=== PATIENT | female | born 1975 | race African-American/Black ===

== ENCOUNTER 2020-12-06 11:02 | Emergency (ER) | payer BC, MEDICAID, OTHER ==
[~2020-12-06] VITALS: Ht 175.3 cm; Wt 99.8 kg
[2020-12-06 11:02] VITALS: BP 122/80
== END 2020-12-06 13:32 | disposition home or self-care (01) ==
LOC: ER 11:02
DX: R07.89 Other chest pain (principal)
CPT/HCPCS: 72040; 73030; 81025

== ENCOUNTER 2022-01-27 11:52 | Emergency (ER) | payer MEDICAID ==
[~2022-01-27] VITALS: Ht 175.3 cm; Wt 100.2 kg
[2022-01-27] MEDS ORDERED: ONDANSETRON ODT 4 MG TAB PO ONE (12:45)
[2022-01-27] MEDS ORDERED: LIDOCAINE VISCOUS 2% 15ML UD PO ONE (12:45)
[2022-01-27] MEDS ORDERED: FAMOTIDINE 20 MG TAB PO ONE (12:45)
[2022-01-27] MEDS ORDERED: ALUM & MAG HYDROX-SIMETH LIQ(MAALOX) 30 ML PO ONE (12:45)
[2022-01-27 13:10] LABS: Albumin 3.5 g/dL (3.4-5.0); Calcium 9.1 mg/dL (8.5-10.1); Potassium 3.3 mmol/L (3.5-5.1)
[2022-01-27 13:15] LABS: BUN/Creatinine Ratio 7.8; Basophils # (auto) 0 10 ^3/uL (0-0.2); Basophils % (auto) 0.6 % (0.0-2.0); Bilirubin, Total 0.5 mg/dL (0.2-1.0); Eosinophils # (auto) 0 10 ^3/uL (0-0.8); Eosinophils % (auto) 0.1 % (0.0-7.0); Hematocrit 33.8 % (36.0-46.0); Hemoglobin 11.2 g/dL (12.2-16.2); Lymphocytes # (auto) 1.7 10 ^3/uL (0.4-5.4); Lymphocytes % (auto) 24.8 % (10.0-50.0); Mean Corpuscular Hemoglobin 28.5 pg (28.0-32.0); Mean Corpuscular Hgb Conc. 33.2 g/dL (32.0-36.0); Mean Corpuscular Volume 85.7 fL (80.0-100.0); Monocytes # (auto) 0.5 10 ^3/uL (0-1.3); Monocytes % (auto) 7.8 % (0.0-12.0); Neutrophils # (auto) 4.6 10 ^3/uL (1.6-8.6); Neutrophils % (auto) 66.7 % (37.0-80.0); Nucleated Red Blood Cells % 0.1 %; Red Blood Cells 3.94 10^6/uL (4.0-5.20); Red Cell Distribution Width 16.6 % (11.8-14.3); Total Protein 7.9 g/dL (6.4-8.2); White Blood Cell 6.9 10^3/uL (4.4-10.8)
[2022-01-27 13:24] LABS: Urine Bacteria NONE SEEN /hpf (None Seen); Urine Blood Negative /uL (Negative); Urine Mucus FEW (None Seen); Urine Specific Gravity 1.018 (1.001-1.035); Urine WBC 1 /hpf (0 - 5)
[2022-01-27 16:53] VITALS: BP 108/78
== END 2022-01-27 17:30 | disposition home or self-care (01) ==
LOC: ER 11:52
DX: E86.0 Dehydration (principal); Z32.02 Encounter for pregnancy test, result negative
CPT/HCPCS: 36415; 71046; 80053; 81001; 81025; 83690; 83735; 84484; 84702; 85025; 93005; 99285; Q0162

== ENCOUNTER 2023-08-14 21:12 | Emergency (ER) | payer MEDICAID ==
[~2023-08-14] VITALS: Ht 175.3 cm; Wt 90.0 kg
[2023-08-15] MEDS ORDERED: TETRACAINE HCL 0.5% OPTH(EYE) SOLN 4ML RIGHTEYE ONE (01:30)
[2023-08-15] MEDS ORDERED: FLUORESCEIN SOD OPTH TEST STRIP RIGHTEYE ONE (01:30)
[2023-08-15] MEDS ORDERED: SULF800T23 PO (02:09)
[2023-08-15] MEDS ORDERED: AMOX875T4 PO (02:09)
[2023-08-15] MEDS ORDERED: TOBR0.3S37 OP (02:09)
[2023-08-15 02:29] VITALS: BP 128/81; PULSE 81; RESP 18; TEMP 97.9; O2SAT 97
== END 2023-08-15 03:32 | disposition home or self-care (01) ==
LOC: ER 21:12
DX: S05.01XA Injury of conjunctiva and corneal abrasion without foreign body, right eye, initial encounter (principal); G40.909 Epilepsy, unspecified, not intractable, without status epilepticus; G43.909 Migraine, unspecified, not intractable, without status migrainosus; Z79.899 Other long term (current) drug therapy; X58.XXXA Exposure to other specified factors, initial encounter; Y93.89 Activity, other specified; Y92.89 Other specified places as the place of occurrence of the external cause; Y99.8 Other external cause status
CPT/HCPCS: 70450; 70480